=== PATIENT | female | born 2000 ===

== ENCOUNTER 2023-07-13 09:37 | Outpatient (CLI) | payer OTHER | END 2023-07-13 10:24 | disposition home or self-care (01) | LOC: SONOGRAMA 09:37 | DX: M32.9 Systemic lupus erythematosus, unspecified (principal); M06.9 Rheumatoid arthritis, unspecified; M25.571 Pain in right ankle and joints of right foot; M25.572 Pain in left ankle and joints of left foot; M25.561 Pain in right knee; M25.562 Pain in left knee ==